=== PATIENT | female | born 1950 | race Native Hawaiian/Other Pacific Islander ===

== ENCOUNTER 2020-04-09 08:19 | Outpatient (CLI) | payer OTHER | END 2020-04-09 19:40 | disposition home or self-care (01) | LOC: LAB 08:19 | DX: R31.9 Hematuria, unspecified (principal) | CPT/HCPCS: 87077; 87086; 87088; 87186 ==

== ENCOUNTER 2020-11-08 08:18 | Outpatient (CLI) | payer OTHER | END 2020-11-08 23:13 | disposition home or self-care (01) | LOC: CT 08:18 | PROVIDERS: ATTEND Nurse Practitioner | DX: R59.0 Localized enlarged lymph nodes (principal) | CPT/HCPCS: Q9963 ==